=== PATIENT | female | born 1965 | race Native Hawaiian/Other Pacific Islander ===

== ENCOUNTER → 2018-09-22 13:25 | Outpatient (CLI) | payer OTHER, MEDICAID, SELFPAY ==
[2018-09-22 13:59] LABS: Add Manual Diff / Slide Review NO; Basophils Absolute Auto 0 /uL (0-100); Basophils Percent Auto 0.5 % (0-2); Eosinophils Absolute Auto 100 /uL (0-450); Eosinophils Percent Auto 1.1 % (2-4); Hematocrit 41.9 % (36-46); Lymphocytes Absolute Auto 2300 /uL (1100-4500); Lymphocytes Percent Auto 39.2 % (25-40); Mean Corpuscular HGB Conc 33.4 % (30-36); Mean Corpuscular Hemoglobin 29.8 PG (26-34); Mean Corpuscular Volume 89.3 fL (80-100); Monocytes Absolute Auto 300 /uL (0-900); Monocytes Percent Auto 5.3 % (3-14); Neutrophils Absolute Auto 3100 /uL (1500-7000); Neutrophils Percent Auto 53.9 % (50-75); Platelet Count 245 X10^3/uL (150-400); Red Blood Cell Count 4.69 X10^6/uL (4.0-5.2); Red Cell Distribution Width 13.7 % (11.6-14.8); White Blood Cell Count 5.8 X10^3/uL (4.5-11.0)
[2018-09-22 14:23] LABS: Alanine Aminotransferase 19 IU/L (9-52); Albumin 4.4 g/dL (3.5-5.0); Albumin Globulin Ratio 1.3 (1.0-2.8); Alkaline Phosphatase 88 U/L (38-126); Aspartate Aminotransferase 30 IU/L (14-36); Bilirubin Total 0.5 mg/dL (0.2-1.3); Blood Urea Nitrogen 16 mg/dL (7-17); C-Reactive Protein Quant 0.5 mg/dL (<1.0); Calcium 9.5 mg/dL (8.4-10.2); Carbon Dioxide 25 mmol/L (22-32); Chloride 104 mmol/L (98-107); Estimated Glomerular Filt Rate > 60.0 mL/min (>60); Globulin 3.4 g/dL (1.7-4.1); Glucose 87 mg/dL (70-100); HEMOLYSIS < 15 (0-50); Potassium 3.8 mmol/L (3.4-5.1); Sodium 141 mmol/L (137-145); Total Protein 7.8 g/dL (6.3-8.2)
[2018-09-22 14:29] LABS: Erythrocyte Sedimentation Rate 7 MM/HR (0-20)
[2018-09-25 18:52] LABS: ANA Screen, IFA Negative (Negative)
== END ==
PROVIDERS: PCP Family Medicine; Visit Provider Physical Medicine & Rehabilitation
DX: G89.29 Other chronic pain (principal); M47.27 Other spondylosis with radiculopathy, lumbosacral region; M54.5 Low back pain; R76.8 Other specified abnormal immunological findings in serum
CPT/HCPCS: 36415; 80053; 85025; 85651; 86038; 86140; 86666

== ENCOUNTER 2019-01-05 14:32 | Outpatient (CLI) | payer OTHER, MEDICAID, SELFPAY ==
[2019-01-05] VITALS (7 sets, daily range): BP systolic 101–130; BP diastolic 59–80; PULSE 91–101; RESP 16–20; TEMP 36.5; O2SAT 95–98
--- NOTE | 2019-01-05 14:34 | DI.RAD.S_ITS ---
PROCEDURE: PAIN L/SI FACET INJ/BLK 1STL INDICATIONS: LOW BACK PAIN FINDINGS: Fluoroscopic spot filming was performed to verify placement of spinal needles at the left L4-L5 and L5-S1 level(s), as labeled on the films. Appropriate location(s) of the needle tip(s) was confirmed by injection of iodinated contrast. IMPRESSION: Fluoroscopy for pain management. Dictated by: Teja Davis M.D. on 01/05/2019 at 17:08 Approved by: Teja Davis M.D. on 01/05/2019 at 17:08
[2019-01-05] MEDS: MIDAZOLAM 5 MG/5 ML VIAL IV (15:33)
[2019-01-05] MEDS: fentaNYL 100 MCG/2 ML INJ 50 MCG IV (15:33)
[2019-01-05] MEDS: IOPAMIDOL 15 ML VIAL 3 ML INJ (15:42)
[2019-01-05] MEDS: BETAMETHASONE 30 MG/5 ML MDV 6 MG INJ (15:42)
[2019-01-05] MEDS: BUPIVACAINE 0.25% (PF) VIAL 2 ML INJ (15:43)
--- NOTE | 2019-01-05 15:44 | PC.NURSE ---
ASSISTING PT OFF TABLE AND TRANSPORTING TO POST PROC AREA IN STABLE CONDITION.
--- NOTE | 2019-01-05 15:46 | P.PCN_ITS ---
Procedures Date/Time Date of procedure: 01/05/19 Time of procedure: 15:46 General Procedure description: PREOP DIAGNOSIS 1. FACET ARTHROPATHY, 2. AXIAL LBP, 3. MULTILEVEL DDD, POST OP DIAGNOSIS 1. FACET ARTHROPATHY, 2. AXIAL LBP, 3. MULTILEVEL DDD, PROCEDURES 1. FLUORSCOPICALLY GUIDED CONTRAST CONTROLLED FACET JOINT INJECTIONS LEFT L4/5, L5/S1 SURGEON: Shekhar Sandoval, DO INDICATIONS Basilia is referred by Dr. Alva for treatment of Axial LBP FINDINGS Multilevel Facet Arthropathy with Clinically significant axial LBP DESCRIPTION OF PROCEDURE Fluoroscopically guided, contrast-controlled left L4/5, L5/S1 facet joint injections. Following review of allergy and review of potential side effects and complications, including, but not necessarily limited to, infection, allergic reaction, local tissue breakdown, stroke, temporary or permanent nerve injury, paralysis, and possible , the patient indicated that the patient understood and agreed to proceed. An informed consent document was signed by the patient, witnessed by a nurse, and placed in the patient's chart. Additionally, other treatment options including medications, modalities, and physical therapy were reviewed with the patient. After review of previous anaesthesic history and IV conscious sedation the patient was deemed safe to proceed with todays procedure with IV conscious sedation as ASA class II designation. Safety time-out was performed to confirm patient ID, procedure to be performed and site of procedure. IV sedation was accomplished with a combination of 2mg of Versed and 50mcg of Fentanylwas administered by the RN after DO order, titrated to patient comfort during the course of the procedure while the patient remained responsive to all verbal commands. In the prone position, following sterile prep and drape of the lumbar region, the posterior aspect of the left L4/5, L5/S1 facet joints were identified fluoroscopically. The skin was anesthetized via a 25-gauge 1.5-inch needle with 1% lidocaine solution into the corresponding facet joints. At this point, a 22- gauge 3.5-inch spinal needle was atraumatically introduced and advanced under fluoroscopic guidance into the corresponding facet joints. Following negative aspiration, injections of approximately 0.2-cc of Isovue 200 confirmed interarticular placement without vascular uptake. Radiological data, including multiple fluoroscopic views of the lumbosacral spine, reveal a spinal needle at the left L4/5, L5/S1 facet joints. Subsequent views show flow of contrast material both superiorly and inferiorly within the joint space without vascular or intrathecal uptake. At this point, a total of 0.5 cc including a mixture of 0.25cc Marcaine and 0.25cc betamethasone was injected without complication into each of the corresponding facet joints. The procedure tolerated the procedure well without signs or symptoms of complications prior to transfer to the recovery area continued monitoring without incident. The patient was then transferred to the recovery area where they were observed for an appropriate period of time after the injection. The patient reported a VAS score of 7 prior to the procedure and a post-procedure VAS of 0. Total Fluoroscopy Time: 12.7 seconds Total Conscious Sedation Time: 24min POST OP INSTRUCTIONS The patient was provided a Pain Log to continue to record their response to the target-specific procedure prior to follow-up visit with their referring physician. Additionally, specific post-injection care instructions and a contact number to our office were provided if concerns arise regarding possible compl ications associated with the procedure are suspected. Shekhar Sandoval DO Complications: none
== END 2019-01-05 16:45 | disposition home or self-care (01) ==
LOC: RAD 14:33
PROVIDERS: PCP Family Medicine; Visit Provider Physical Medicine & Rehabilitation
DX: M47.816 Spondylosis without myelopathy or radiculopathy, lumbar region (principal); M47.817 Spondylosis without myelopathy or radiculopathy, lumbosacral region; M54.5 Low back pain; M51.36 Other intervertebral disc degeneration, lumbar region; M51.37 Other intervertebral disc degeneration, lumbosacral region
CPT/HCPCS: 64493; 64494; 99152; J0702; J1100; J2250; J3010

== ENCOUNTER 2019-04-09 10:26 | Outpatient (CLI) | payer OTHER, MEDICAID, SELFPAY ==
[2019-04-09] VITALS (9 sets, daily range): BP systolic 109–126; BP diastolic 59–78; PULSE 45–52; RESP 16–17; TEMP 36.2; O2SAT 99–100
--- NOTE | 2019-04-09 10:29 | DI.RAD.S_ITS ---
PROCEDURE: PAIN L/SI FACET INJ/BLK 1STL INDICATIONS: SPONDYLOSIS FINDINGS: Fluoroscopic spot filming was performed to verify placement of spinal needles at the L4, L5 and S1 level(s), as labeled on the films. Appropriate location(s) of the needle tip(s) was confirmed by injection of iodinated contrast. Dictated by: Max Gonzales M.D. on 04/09/2019 at 12:22 Approved by: Max Gonzales M.D. on 04/09/2019 at 12:25
[2019-04-09] MEDS: fentaNYL 100 MCG/2 ML INJ 50 MCG IV (11:13)
[2019-04-09] MEDS: MIDAZOLAM 5 MG/5 ML VIAL IV (11:13)
[2019-04-09] MEDS: IOPAMIDOL 15 ML VIAL 3 ML INJ (11:21)
[2019-04-09] MEDS: BUPIVACAINE 0.5% (PF) VIAL 2 ML INJ (11:21)
--- NOTE | 2019-04-09 11:23 | PC.NURSE ---
ASSISTING PT OFF TABLE AND TRANSPORTING TO POST PROC AREA IN STABLE CONDITION. PASSING RN CARE OF PT OFF TO ELIS Macdonald RN.
--- NOTE | 2019-04-09 11:25 | P.PCN_ITS ---
Procedures Date/Time Date of procedure: 04/09/19 Time of procedure: 11:25 General Procedure description: POST OP DIAGNOSIS 1. FACET ARTHROPATHY PROCEDURES 1. Left L4, L5 and S1 MB BLOCKS PHYSICIAN: Shekhar Sandoval DO INDICATIONS Basilia is referred by Dr. Alva for treatment of Left Axial LBP. DESCRIPTION OF PROCEDURE Fluoroscopically guided, contrast-controlled left L4, L5 and S1 medial branch blocks with 0.5cc of 0.5% Marcaine. Following review of allergy and review of potential side effects and complications, including, but not necessarily limited to, infection, allergic reaction, local tissue breakdown, nerve injury, paralysis, stroke and possible , the patient indicated that the patient understood and agreed to proceed. An informed consent document was signed by the patient, witnessed by a nurse, and placed in the patient's chart. After review of previous anaesthesic history and IV conscious sedation the patient was deemed safe to proceed with todays procedure with IV conscious sedation as ASA class II designation. Safety time-out was performed to confirm patient ID, procedure to be performed and site of procedure. IV sedation was accomplished with a combination of 4mg of Versed and 50mcg of Fentanyl was administered by the RN after DO order, titrated to patient comfort during the course of the procedure while the patient remained responsive to all verbal commands. In the prone position, following sterile prep and drape of the lumbar region, the left L4, L5 and S1 anatomical location of the medial branch of the dorsal ramus was identified fluoroscopically. Subsequently an anesthetic skin wheal using 1% lidocaine solution was initiated at each of the anatomical spots. Subsequently then a 25-gauge 3.5-inch spinal needle was atraumatically introduced and advanced under fluoroscopic guidance at each of the corresponding sites at the left L4, L5 and S1 MB. After negative aspiration, 0.2 cc of Isovue 200 was injected, confirming placement without vascular or intrathecal uptake. Subsequently then 0.5 cc of 0.5% Marcaine solution was injected at each of the corresponding sites at the left L4, L5 and S1 medial branch locations. The patient tolerated the procedure well without signs or symptoms of complications. The patient tolerated the procedure well without signs or symptoms of complications prior to transfer to the recovery area continued monitoring without incident. Post-procedure, the patient was monitored initiating provocative activities to measure the amount of relief from block of the facetogenic pain. The patient reported a VAS of 8 prior to the procedure and a post-procedure VAS of 1. It has been a pleasure to assist in the diagnostic and therapeutic care of your patient. Total Fluoroscopy Time: 9 seconds Total Conscious Sedation Time: 24min POST OP INSTRUCTIONS The patient was provided with a Pain Log to complete over the next several hours and subsequent days prior to the patient's follow up with the ordering physician. If the patient has chain link fence installer relief to the solution applied, then they may be a candidate for medial branch rhizotomy. The patient is aware, was provided, once again, with a Pain Log and will follow up with the referring physician for review and clinical correlation Shekhar Sandoval DO Complications: none
--- NOTE | 2019-04-09 12:08 | PC.NURSE ---
at 1129 return from procedure, pain 03/09, able to transfer self from w/c to chair, deferred snacks at this time
== END 2019-04-09 11:52 | disposition home or self-care (01) ==
LOC: RAD 10:28
PROVIDERS: PCP Family Medicine; Referring Provider Family Medicine; Visit Provider Physical Medicine & Rehabilitation
DX: M47.817 Spondylosis without myelopathy or radiculopathy, lumbosacral region (principal); M47.816 Spondylosis without myelopathy or radiculopathy, lumbar region; M54.5 Low back pain
CPT/HCPCS: 64493; 64494; 99152; J2250; J3010

== ENCOUNTER → 2019-09-03 14:58 | Outpatient (CLI) | payer OTHER, MEDICAID, SELFPAY ==
--- NOTE | 2019-09-03 15:01 | DI.RAD.S_ITS ---
PROCEDURE: XR LUMBAR SPINE MIN 4V INDICATIONS: low back pain TECHNIQUE: 5 views of the lumbar spine were acquired. COMPARISON: None. FINDINGS: Bones: 5 nonrib-bearing vertebrae are present. There is normal bony alignment. No vertebral body compression fractures. No suspicious bony lesions. There is minimal disc height reduction and mild facet osteoarthritis at L5-S1. Soft tissues: Overlying bowel gas pattern is normal. No suspicious soft tissue calcifications. Oblique images: No pars defects. IMPRESSION: L5-S1 minimal degenerative disc disease and mild facet osteoarthritis symmetric bilaterally. No trauma found. Dictated by: Syed Escalera M.D. on 09/03/2019 at 15:27 Approved by: Syed Escalera M.D. on 09/03/2019 at 15:28
== END ==
PROVIDERS: PCP Family Medicine; Referring Provider Physical Medicine & Rehabilitation; Visit Provider Physical Medicine & Rehabilitation
DX: M54.5 Low back pain (principal); M47.27 Other spondylosis with radiculopathy, lumbosacral region
CPT/HCPCS: 72110

== ENCOUNTER 2020-04-26 23:33 | Emergency (ER) | payer OTHER, MEDICAID, SELFPAY ==
[2020-04-26 23:48] VITALS: BP 117/80; PULSE 78; RESP 17; TEMP 36.3; O2SAT 98; BMI 21.4
[2020-04-26 23:59] LABS: Add Manual Diff / Slide Review NO; Basophils Absolute Auto 0 /uL (0-100); Basophils Percent Auto 0.2 % (0-2); Eosinophils Absolute Auto 0 /uL (0-450); Eosinophils Percent Auto 0.1 % (2-4); Hematocrit 42.2 % (36-46); Hemoglobin 14.3 g/dL (12.0-16.0); Lymphocytes Absolute Auto 900 /uL (1100-4500); Lymphocytes Percent Auto 8.3 % (25-40); Mean Corpuscular HGB Conc 33.8 % (30-36); Mean Corpuscular Hemoglobin 31.1 PG (26-34); Mean Corpuscular Volume 91.8 fL (80-100); Monocytes Absolute Auto 300 /uL (0-900); Monocytes Percent Auto 2.7 % (3-14); Neutrophils Absolute Auto 9200 /uL (1500-7000); Neutrophils Percent Auto 88.7 % (50-75); Platelet Count 256 X10^3/uL (150-400); Red Cell Distribution Width 13.4 % (11.6-14.8); White Blood Cell Count 10.4 X10^3/uL (4.5-11.0)
[2020-04-27 00:02] LABS: Prothrombin Time 11.3 SECONDS (10.1-12.7)
[2020-04-27 00:06] LABS: Alanine Aminotransferase 19 IU/L (<35); Albumin 4.1 g/dL (3.5-5.0); Albumin Globulin Ratio 1.3 (1.0-2.8); Alkaline Phosphatase 99 U/L (38-126); Aspartate Aminotransferase 45 IU/L (14-36); Bilirubin Total 0.4 mg/dL (0.2-1.3); Blood Urea Nitrogen 13 mg/dL (7-17); Calcium 9.3 mg/dL (8.4-10.2); Carbon Dioxide 25 mmol/L (22-32); Chloride 107 mmol/L (98-107); Estimated Glomerular Filt Rate > 60.0 mL/min (>60); Globulin 3.1 g/dL (1.7-4.1); Glucose 98 mg/dL (70-100); HEMOLYSIS < 15 (0-50); Lipase 91 U/L (23-300); Sodium 138 mmol/L (137-145); Total Protein 7.2 g/dL (6.3-8.2)
--- NOTE | 2020-04-27 00:08 | ED.ABDPAIN ---
HPI - Abdominal Pain General Chief Complaint: Abdominal Pain Stated Complaint: poss bowel obstruction nausea sent by [facility] Time Seen by Provider: 04/26/20 23:42 Source: patient Mode of arrival: Ambulatory History of Present Illness HPI narrative: Patient is a 55-year-old female history of endometriosis chronic back pain and anxiety presenting with abdominal pain and vomiting constipation. She states that she has been on fentanyl patches for over a year for her chronic abdominal pain. She says however over the last few months she has had intermittent vomiting and worsening abdominal pain. She says she has lost over 20 lb over the last several months, she is only able to eat solid because everything else makes her nauseous. She states her last real bowel movement was 10 days ago she had 1 small hard stool today. She has tried MiraLax and gwyo-evq-kxduzbg medications today she has a suppository. This evening she had intense left-sided abdominal pain which prompted her mother to call 911. She has been persistently vomiting today and unable to keep anything down and feels as though she is dehydrated. She denies any fever or chills. MD complaint: abdominal pain Pain Consistency: now resolved Severity: moderate Quality: stabbing Radiation: LLQ Migration to: no migration Related Data Home Medications Medication Instructions Recorded Confirmed clonazepam 0.5 mg tablet 0.5 - 1 mg PO BEDTIME tab 09/22/18 12/12/19 fentanyl duragesic alvogen/apotex 75 mcg TRANSDERMAL 09/22/18 12/12/19 Previous Rx's Medication Instructions Recorded diazepam 10 mg tablet 10 mg PO .COMPLEX PRN #10 tab 12/12/19 diazepam 10 mg tablet 10 mg PO .COMPLEX PRN #10 tab 12/12/19 ciprofloxacin HCl [Cipro] 500 mg PO BID #14 tab 04/27/20 fluconazole [Diflucan] 200 mg PO DAILY #1 tab 04/27/20 metronidazole [Flagyl] 500 mg PO Q8H #21 tab 04/27/20 ondansetron 4 mg PO Q8H PRN #10 tab 04/27/20 Allergies Allergy/AdvReac Type Severity Reaction Status Date / Time No Known Drug Allergies Allergy Verified 12/12/19 15:27 Review of Systems Review of Systems ROS Unobtainable: All systems reviewed & are unremarkable except as noted in HPI and below Constitutional Constitutional: Denies chills, Reports fatigue, Reports lethargy, Reports malaise and Reports poor appetite Eyes Eyes: Denies change in vision, Denies eye discharge, Denies irritation and Denies loss of vision ENT Ears, Nose, Mouth, and Throat: Denies change in voice, Denies vertigo, Denies dizziness, Denies neck pain and Denies sore throat Cardiovascular Cardiovascular: Denies chest pain, Denies irregular heart rhythm, Denies lightheadedness, Denies palpitations, Denies dyspnea, Denies dyspnea on exertion and Denies orthopnea Respiratory Respiratory: Denies cough, Denies dyspnea, Denies dyspnea on exertion and Denies wheezing Gastrointestinal Gastrointestinal: Reports as per HPI Musculoskeletal Musculoskeletal: Denies back pain and Denies neck pain Integumentary/Breasts Skin/Breast: Denies pruritus, Denies erythema, Denies rash and Denies wounds Neurologic Neurologic: Denies vertigo, Denies dizziness and Denies loss of vision Endocrine Endocrine: Reports fatigue and Denies palpitations Allergic/Immunologic Allergic/Immunologic: Denies wheezing Patient History Medical History (Updated 04/27/20 @ 01:47 by Eri Cordova DO) Facet arthropathy, lumbosacral Surgical History H/O breast augmentation History of breast biopsy Family History Father Rheumatoid arthritis Diabetes mellitus Mother Osteopenia Osteoarthritis Social History marital status: unmarried,single Smoking Status: Current some day smoker alcohol intake: current Smoking Status: Current some day smoker alcohol intake frequency: other Substance Use Type: does not use Exam Initial Vital Signs Initial Vital Signs: Vital Signs Temperature 97.3 F L 04/26/20 23:48 Pulse Rate 78 04/26/20 23:48 Respiratory Rate 17 04/26/20 23:48 Blood Pressure 117/80 04/26/20 23:48 Pulse Oximetry 98 04/26/20 23:48 GENERAL: Talkative well-appearing 55-year-old female and in no acute distress. HEENT: Head atraumatic,EOMI, pupils reactive, face symmetric, moist mucous membranes CARDIOVASCULAR: Regular rate and rhythm without murmurs, rubs or gallops. RESPIRATORY: Breath sounds equal bilaterally, no wheezes rales or rhonchi. ABDOMEN: Soft, minimal left lower quadrant pain. Normoactive bowel sounds all 4 quadrants. No guarding or rebound. EXTREMITIES: Normal range of motion, no clubbing or edema. Neurovascularly intact NEUROLOGICAL: Alert and oriented x4.Normal gait and speech. Cranial nerves II through XII grossly intact. SKIN: Warm, dry, no laceration, no petechiae, no rashes or lesions. Course Orders Ordered: ED Orders 04/26/20 23:48 Complete Blood Count AUTO DIFF Stat Comprehensive Metabolic Panel Stat Lipase Stat Partial Thromboplastin Time Stat Prothrombin Time INR Stat 04/27/20 00:09 CT abdomen pelvis w con Stat Discontinued Medications Ciprofloxacin (Ciprofloxacin 500 Mg Tablet) 500 mg PO NOW ONE Stop: 04/27/20 01:58 Last Admin: 04/27/20 02:24 Dose: 500 mg Documented by: MOO Sodium Chloride (Normal Saline 0.9%) 1,000 mls @ 1,000 mls/hr IV BOLUS ONE Stop: 04/27/20 01:08 Last Infusion: 04/27/20 01:37 Dose: 0 mls/hr Documented by: Admin: 04/27/20 00:19 Dose: 1,000 mls/hr Documented by: MOO Ketorolac Tromethamine (Ketorolac 60 Mg/2 Ml Vial) 30 mg IV NOW ONE Stop: 04/27/20 00:10 Last Admin: 04/27/20 00:19 Dose: 30 mg Documented by: MOO Metronidazole (Metronidazole 500 Mg Tablet) 500 mg PO NOW ONE Stop: 04/27/20 01:58 Last Admin: 04/27/20 02:24 Dose: 500 mg Documented by: MOO Vital Signs Vital signs: Vital Signs - 8 hr 04/26/20 23:48 04/27/20 00:44 04/27/20 01:00 Temperature 97.3 F L Pulse Rate 78 78 68 Respiratory Rate 17 Blood Pressure 117/80 121/60 Pulse Oximetry 98 99 97 04/27/20 01:30 Temperature Pulse Rate 60 Respiratory Rate Blood Pressure 111/65 Pulse Oximetry 97 MDM - Abdominal Pain Lab Data Attestation: I reviewed the patient's lab results. Result diagrams: 04/26/20 23:48 04/26/20 23:48 Labs: Lab Results 0204/26/20 04/26/20 Range/Units 23:48 23:48 23:48 WBC 10.4 (4.5-11.0) X10^3/uL RBC 4.60 (4.0-5.2) X10^6/uL Hgb 14.3 (12.0-16.0) g/dL Hct 42.2 (36-46) % MCV 91.8 (80-100) fL MCH 31.1 (26-34) PG MCHC 33.8 (30-36) % RDW 13.4 (11.6-14.8) % Plt Count 256 (150-400) X10^3/uL Neut % (Auto) 88.7 H (50-75) % Lymph % (Auto) 8.3 L (25-40) % [place] % (Auto) 2.7 L (3-14) % Eos % (Auto) 0.1 L (2-4) % Baso % (Auto) 0.2 (0-2) % Neut # (Auto) 9200 H (1887-9427) /uL Lymph # (Auto) 900 L (5192-6942) /uL [place] # (Auto) 300 (0-900) /uL Eos # (Auto) 0 (0-450) /uL Baso # (Auto) 0 (0-100) /uL PT 11.3 (10.1-12.7) SECONDS INR 1.0 (0.9-1.3) APTT 33 (26.4-36.2) SECONDS Sodium 138 (137-145) mmol/L Potassium 4.0 (3.4-5.1) mmol/L Chloride 107 (98-107) mmol/L Carbon Dioxide 25 (22-32) mmol/L BUN 13 (7-17) mg/dL Creatinine 0.65 (0.52-1.04) mg/dL Estimated GFR > 60.0 (>60) mL/min BUN/Creatinine Ratio 20.0 (6-22) Glucose 98 (70-100) mg/dL Calcium 9.3 (8.4-10.2) mg/dL Total Bilirubin 0.4 (0.2-1.3) mg/dL AST 45 H (14-36) IU/L ALT 19 (<35) IU/L Alkaline Phosphatase 99 (38-126) U/L Total Protein 7.2 (6.3-8.2) g/dL Albumin 4.1 (3.5-5.0) g/dL Globulin 3.1 (1.7-4.1) g/dL Albumin/Globulin Ratio 1.3 (1.0-2.8) Lipase 91 (23-300) U/L Imaging Data CT scan - abdomen/pelvis: Radiologist's Impression: Preliminary report: Probable acute small-bowel enteritis pattern MDM Narrative Medical decision making narrative: Patient has no leukocytosis she is afebrile. She has had ongoing pain off and on for a number of months but may be progressively getting worse. She certainly has had ongoing nausea and vomiting. It sounds as though she may have symptoms of IBS. A CT certainly does not show any signs of constipation or impaction. Recommend that she see a GI specialist. Her symptoms have been ongoing for a while and seemed to be more severe at this time will try antibiotics Cipro and Flagyl. Discharge Plan Departure Patient Disposition: Home Clinical Impression: Gastroenteritis Instructions: DI for Viral Gastroenteritis -- Adult Activity Restrictions/Additional Instructions: *You have been diagnosed with gastroenteritis *What to do: I do recommend that you see GI for possible irritable bowel syndrome *Continue to take medications as directed Cipro 500 mg twice a day for 7 days Flagyl 500 mg 3 times a day for 7 days Diflucan 200 mg once after you are finished with antibiotics Zofran 4 mg every 8 hours if needed for nausea or vomiting Senokot and Dulcolax daily in till you have a bowel movement-take as directed *Follow up with your primary care provider in 2-3 days *Return to ER if you should have increasing abdominal pain persistent vomiting, fever or any new, worsening or concerning symptoms Prescriptions: New ciprofloxacin HCl [Cipro] 500 mg tablet 500 mg PO BID Qty: 14 RF: 0 metronidazole [Flagyl] 500 mg tablet 500 mg PO Q8H Qty: 21 RF: 0 fluconazole [Diflucan] 200 mg tablet 200 mg PO DAILY Qty: 1 RF: 0 ondansetron 4 mg tablet,disintegrating 4 mg PO Q8H PRN (Reason: nausea and vomiting) Qty: 10 RF: 0 No Action diazepam [Valium] 10 mg tablet 10 mg PO .COMPLEX PRN (Reason: sedation) Qty: 10 RF: 0 diazepam [Valium] 10 mg tablet 10 mg PO .COMPLEX PRN (Reason: sedation) Qty: 10 RF: 0 clonazepam 0.5 mg tablet 0.5 - 1 mg PO BEDTIME RF: 0 fentanyl duragesic alvogen/apotex 75 mcg transdermal RF: 0 Referrals: Martell Alva MD [Primary Care Provider] -
--- NOTE | 2020-04-27 00:09 | DI.CT.S_ITS ---
PROCEDURE: CT ABDOMEN PELVIS W CON INDICATIONS: vomiting, ab pain TECHNIQUE: After the administration of intravenous contrast, 5 mm thick sections acquired from the diaphragm to the symphysis. 5 mm coronal and sagittal reformats were acquired. For radiation dose reduction, the following was used: automated exposure control, adjustment of mA and/or kV according to patient size. COMPARISON: [facility], CT, ABDOMEN/PELVIS WITH CONTRAST, 11/05/2016, 15:51. FINDINGS: Image quality: Excellent. ABDOMEN: Lung bases: Lung bases are clear. Heart size is normal. Solid organs: Liver is normal in size and enhancement. Gallbladder is within normal limits. Biliary system is non dilated. Pancreas enhances normally. Spleen is normal in size and enhancement. No adrenal nodules. Kidneys demonstrate normal size and enhancement, without hydronephrosis. Peritoneum and bowel: There is possible mild thickening of multiple small bowel loops. Bowel loops demonstrate otherwise normal wall thickness and caliber. There is moderate diffuse colonic stool. No free fluid or air. Normal appendix. Nodes and vessels: No retroperitoneal or mesenteric adenopathy by size criteria. Aorta and inferior vena cava are normal in size. Miscellaneous: No ventral hernias. PELVIS: Genitourinary: Urinary bladder is decompressed. Miscellaneous: No inguinal hernias or adenopathy. Bones: No suspicious bony lesions. No vertebral body compression fractures. IMPRESSION: 1. Possible small bowel thickening, which could indicate gastroenteritis. 2. Normal appendix. 3. Concordant with preliminary interpretation. Dictated by: Marian Rivas M.D. on 04/27/2020 at 8:08 Approved by: Marian Rivas M.D. on 04/27/2020 at 8:10
[2020-04-27 00:14] LABS: PTT Partial Thromboplastin Tim 33 SECONDS (26.4-36.2)
[2020-04-27] MEDS: SODIUM CHLORIDE 0.9% 1,000 ML 1000 ML IV (00:19)
[2020-04-27] MEDS: KETOROLAC 60 MG/2 ML VIAL 30 MG IV (00:19)
[2020-04-27 00:44] VITALS: PULSE 78; O2SAT 99
[2020-04-27 01:00] VITALS: BP 121/60; PULSE 68; O2SAT 97
[2020-04-27 01:30] VITALS: BP 111/65; PULSE 60; O2SAT 97
[2020-04-27] MEDS: metroNIDAZOLE 500 MG TABLET PO (02:24)
[2020-04-27] MEDS: CIPROFLOXACIN 500 MG TABLET PO (02:24)
== END 2020-04-27 02:24 | disposition home or self-care (01) ==
PROVIDERS: Emergency Provider Emergency Medicine; PCP Family Medicine
DX: K52.9 Noninfective gastroenteritis and colitis, unspecified (principal); K59.00 Constipation, unspecified
CPT/HCPCS: 36415; 74177; 80053; 83690; 85025; 85610; 85730; 96361; 96374; 99283; 99284; J1885; Q9967

== ENCOUNTER → 2020-05-19 12:33 | Outpatient (CLI) | payer OTHER, MEDICAID, SELFPAY ==
--- NOTE | 2020-05-19 12:34 | DI.MRI.S_ITS ---
PROCEDURE: MR LUMBAR SPINE WO CON INDICATIONS: Dorsalgia, unspecified TECHNIQUE: Noncontrast sagittal T1 spin echo and T2 fast echo, sagittal STIR, axial T1 and T2 fast spin echo through the lumbar spine. In cases with scoliosis, additional coronal T2 fast spin echo may be performed. COMPARISON: [facility], CR, XR LUMBAR SPINE MIN 4V, 09/03/2019, 14:55. Outside Film, MR, MR LUMBAR SPINE WITHOUT CONTRAST, 11/01/2018, 11:28. [facility], MR LUMBAR SPINE WO CON, 08/26/2015, 14:39. FINDINGS: Image quality: Excellent. Alignment and Curvature: There is trace L5-S1 anterolisthesis. Bone Marrow: Marrow is of normal overall signal. No acute vertebral body compression fractures. Spinal Cord: Conus medullaris terminates at the L1 -2 disc level. Visualized cord demonstrates normal signal and size. Paraspinous Soft Tissues: No paravertebral masses. T12-L1: Normal appearance. L1-L2: Normal appearance. L2-L3: Loss of disc signal. Mild, diffuse disc bulge. No central stenosis. No neural foraminal narrowing. No neural compression. Fissure noted in the left foraminal annulus. L3-L4: Loss of disc signal. Mild, diffuse disc bulge. Mild bilateral facet hypertrophy. Mild narrowing of the central canal. Mild left neural foraminal narrowing. Fissure noted in the left foraminal annulus. L4-L5: Loss of disc signal. Mild, diffuse disc bulge. Moderate bilateral facet hypertrophy. Mild narrowing of the central canal. Mild bilateral neural foraminal narrowing. No neural compression. Fissure noted in the left foraminal annulus. L5-S1: Loss of disc signal. Mild, diffuse disc bulge. Moderate bilateral facet hypertrophy. No central stenosis. Mild bilateral neural foraminal narrowing. No neural compression. 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 IMPRESSION: 1. Multilevel degenerative disc disease. 2. Multilevel facet arthropathy. 3. No severe central canal narrowing. 4. No severe neural foraminal narrowing. 5. No neural compression. 6. L2-L3, L3-L4 and L4-L5 disc annulus fissures. Dictated by: Sisi Sharma MD, PhD on 05/19/2020 at 14:13 Approved by: Sisi Sharma MD, PhD on 05/19/2020 at 15:03
== END ==
PROVIDERS: PCP Family Medicine; Referring Provider Family Medicine; Visit Provider Family Medicine
DX: M54.9 Dorsalgia, unspecified (principal); M99.53 Intervertebral disc stenosis of neural canal of lumbar region; M51.36 Other intervertebral disc degeneration, lumbar region; M51.37 Other intervertebral disc degeneration, lumbosacral region; M47.816 Spondylosis without myelopathy or radiculopathy, lumbar region; M47.817 Spondylosis without myelopathy or radiculopathy, lumbosacral region; M48.061 Spinal stenosis, lumbar region without neurogenic claudication; M48.07 Spinal stenosis, lumbosacral region
CPT/HCPCS: 72148

== ENCOUNTER → 2020-06-02 12:50 | Outpatient (CLI) | payer OTHER, MEDICAID, SELFPAY ==
[2020-06-02 13:21] LABS: Add Manual Diff / Slide Review NO; Basophils Absolute Auto 100 /uL (0-100); Basophils Percent Auto 1.1 % (0-2); Eosinophils Absolute Auto 100 /uL (0-450); Hematocrit 38.9 % (36-46); Hemoglobin 13.1 g/dL (12.0-16.0); Lymphocytes Absolute Auto 2800 /uL (1100-4500); Lymphocytes Percent Auto 51.1 % (25-40); Mean Corpuscular HGB Conc 33.6 % (30-36); Mean Corpuscular Hemoglobin 30.3 PG (26-34); Mean Corpuscular Volume 90.1 fL (80-100); Monocytes Absolute Auto 300 /uL (0-900); Monocytes Percent Auto 6.2 % (3-14); Neutrophils Absolute Auto 2200 /uL (1500-7000); Neutrophils Percent Auto 39.6 % (50-75); Platelet Count 185 X10^3/uL (150-400); Red Blood Cell Count 4.32 X10^6/uL (4.0-5.2); Red Cell Distribution Width 12.3 % (11.6-14.8); White Blood Cell Count 5.5 X10^3/uL (4.5-11.0)
[2020-06-02 13:43] LABS: HEMOLYSIS < 15 (0-50); Iron 163 ug/dL (37-170)
[2020-06-02 13:54] LABS: Percent Iron Saturation 59 % (15-50); Total Iron Binding Capacity 274 ug/dL (265-497); Transferrin 229 mg/dL (206-381)
[2020-06-02 14:01] LABS: Free T3, Triiodothyronine Free 3.97 pg/mL (2.77-5.27); Free T4, Direct Thyroxine 1.07 ng/dL (0.78-2.19)
[2020-06-02 14:15] LABS: Thyroid Stimulating Hormone 2.39 uIU/mL (0.47-4.68)
[2020-06-03 22:51] LABS: Dehydroepiandrosterone Sulfate 98.2 ug/dL (41.2-243.7)
[2020-06-05 07:56] LABS: Percent Free Testosterone 1.84 % (0.50-2.80); Testosterone Free 0.18 ng/dL (0.10-0.85); Testosterone Total 9.6 ng/dL (.)
[2020-06-12 20:12] LABS: Triiodothyronine T3 Reverse 14.2 ng/dL (9.2-24.1)
== END ==
PROVIDERS: PCP Family Medicine; Referring Provider Obstetrics & Gynecology; Visit Provider Obstetrics & Gynecology
DX: N95.1 Menopausal and female climacteric states (principal); R53.83 Other fatigue; L81.9 Disorder of pigmentation, unspecified
CPT/HCPCS: 36415; 82627; 83001; 83540; 83550; 84402; 84403; 84439; 84443; 84481; 84482; 85025

== ENCOUNTER → 2020-12-08 11:50 | Outpatient (CLI) | payer OTHER, MEDICAID, SELFPAY ==
[2020-12-08 19:43] LABS: COVID19 - ORCAS (NP or Nasal) Negative (Negative)
== END ==
PROVIDERS: PCP Family Medicine; Visit Provider Family Medicine
DX: Z20.822 Contact with and (suspected) exposure to COVID-19 (principal)
CPT/HCPCS: U0003

== ENCOUNTER → 2020-12-15 12:01 | Outpatient (CLI) | payer OTHER, MEDICAID, SELFPAY ==
[2020-12-15 21:25] LABS: COVID19 - ORCAS (NP or Nasal) Negative (Negative)
== END ==
PROVIDERS: PCP Family Medicine; Visit Provider Family Medicine
DX: Z20.822 Contact with and (suspected) exposure to COVID-19 (principal)
CPT/HCPCS: C9803; U0003

== ENCOUNTER → 2021-01-05 11:48 | Outpatient (CLI) | payer OTHER, MEDICAID, SELFPAY ==
[2021-01-05 20:58] LABS: COVID19 - ORCAS (NP or Nasal) Negative (Negative)
== END ==
PROVIDERS: PCP Family Medicine; Referring Provider Family Medicine; Visit Provider Family Medicine
DX: Z20.822 Contact with and (suspected) exposure to COVID-19 (principal)
CPT/HCPCS: C9803; U0003

== ENCOUNTER 2021-01-06 14:55 | Outpatient (CLI) | payer OTHER, MEDICAID, SELFPAY ==
[2021-01-06] VITALS (7 sets, daily range): BP systolic 104–124; BP diastolic 51–96; PULSE 75–92; RESP 12–22; TEMP 36.7; O2SAT 98–99
--- NOTE | 2021-01-06 14:56 | DI.RAD.S_ITS ---
PROCEDURE: PAIN L/SI FACET INJ/BLK 1STL INDICATIONS: SPONDYLOSIS COMPARISON: [facility], , PAIN L/SI FACET INJ/BLK 1STL, 04/09/2019, 11:14. FINDINGS: Fluoroscopic spot filming was performed to verify placement of spinal needles at the L3-L4, L4-L5, and L5-S1 left medial branch level(s), as labeled on the films. Appropriate location(s) of the needle tip(s) was confirmed by injection of iodinated contrast. IMPRESSION: Imaging utilized for multilevel left lumbar medial branch block. Dictated by: Jose Roberto Peñaloza M.D. on 01/06/2021 at 16:14 Approved by: Jose Roberto Peñaloza M.D. on 01/06/2021 at 16:15
[2021-01-06] MEDS: fentaNYL 100 MCG/2 ML INJ 50 MCG IV (15:22)
[2021-01-06] MEDS: MIDAZOLAM 5 MG/5 ML VIAL IV (15:22)
[2021-01-06] MEDS: BUPIVACAINE 0.5% (PF) VIAL 5 ML INJ (15:27)
[2021-01-06] MEDS: IOPAMIDOL 15 ML VIAL 3 ML INJ (15:27)
[2021-01-06] MEDS: LIDOCAINE 1% 20 ML 10 ML INJ (15:28)
--- NOTE | 2021-01-06 15:34 | PM.PROC.IR.1 ---
Date/Time/Diagnoses Date of procedure: 01/06/21 Time of procedure: 15:34 Pre-procedure diagnosis: 1. FACET ARTHROPATHY Post-procedure diagnosis: same Procedure Notes Procedure: 1. Left L4, L5 and S1 MB BLOCKS Indications: Basilia is referred by Dr. Clayton for treatment of Left Axial LBP. Physician: Shekhar Sandoval Total Fluoroscopy time (seconds): 8 Total sedation minutes: 8 Complications: none Procedure in detail & Post-procedure care: DESCRIPTION OF PROCEDURE Fluoroscopically guided, contrast-controlled left L4, L5 and S1 medial branch blocks with 0.5cc of 0.5% Marcaine. Following review of allergy and review of potential side effects and complications, including, but not necessarily limited to, infection, allergic reaction, local tissue breakdown, nerve injury, paralysis, stroke and possible , the patient indicated that the patient understood and agreed to proceed. An informed consent document was signed by the patient, witnessed by a nurse, and placed in the patient's chart. After review of previous anaesthesic history and IV conscious sedation the patient was deemed safe to proceed with today?s procedure with IV conscious sedation as ASA class II designation. Safety time-out was performed to confirm patient ID, procedure to be performed and site of procedure. IV sedation was accomplished with a combination of 3mg of Versed and 50mcg of Fentanyl was administered by the RN after DO order, titrated to patient comfort during the course of the procedure while the patient remained responsive to all verbal commands. In the prone position, following sterile prep and drape of the lumbar region, the left L4, L5 and S1 anatomical location of the medial branch of the dorsal ramus was identified fluoroscopically. Subsequently an anesthetic skin wheal using 1% lidocaine solution was initiated at each of the anatomical spots. Subsequently then a 22-gauge 3.5-inch spinal needle was atraumatically introduced and advanced under fluoroscopic guidance at each of the corresponding sites at the left L4, L5 and S1 MB. After negative aspiration, 0.2cc of Isovue 200 was injected, confirming placement without vascular or intrathecal uptake. Subsequently then 0.5cc of 0.5% Marcaine solution was injected at each of the corresponding sites at the left L4, L5 and S1 medial branch locations. The patient tolerated the procedure well without signs or symptoms of complications. The patient tolerated the procedure well without signs or symptoms of complications prior to transfer to the recovery area continued monitoring without incident. Post-procedure, the patient was monitored initiating provocative activities to measure the amount of relief from block of the facetogenic pain. The patient reported a VAS of 7 prior to the procedure and a post-procedure VAS of 1. It has been a pleasure to assist in the diagnostic and therapeutic care of your patient. POST OP INSTRUCTIONS The patient was provided with a Pain Log to complete over the next several hours and subsequent days prior to the patient's follow up with the ordering physician. If the patient has customer relations consultant relief to the solution applied, then they may be a candidate for medial branch rhizotomy. The patient is aware, was provided, once again, with a Pain Log and will follow up with the referring physician for review and clinical correlation.
== END 2021-01-06 16:02 | disposition home or self-care (01) ==
PROVIDERS: PCP Family Medicine; Referring Provider Physical Medicine & Rehabilitation; Visit Provider Physical Medicine & Rehabilitation
DX: M47.817 Spondylosis without myelopathy or radiculopathy, lumbosacral region (principal); M54.59 Other low back pain
CPT/HCPCS: 64493; J2250; J3010

== ENCOUNTER → 2021-10-15 13:09 | Outpatient (CLI) | payer OTHER, MEDICAID, SELFPAY ==
[2021-10-16 18:25] LABS: Hematocrit 40.7 % (36-46); Mean Corpuscular HGB Conc 34.4 % (30-36); Mean Corpuscular Hemoglobin 30.3 PG (26-34); Platelet Count 259 X10^3/uL (150-400); Red Blood Cell Count 4.62 X10^6/uL (4.0-5.2); Red Cell Distribution Width 12.9 % (11.6-14.8); White Blood Cell Count 5.4 X10^3/uL (4.5-11.0)
[2021-10-16 18:29] LABS: Cholesterol 189 mg/dL (140-199); HDL Cholesterol 42 mg/dL (40-60); LDL Cholesterol Calculated 126 mg/dL (<100); Triglycerides 105 mg/dL (35-150)
[2021-10-16 18:40] LABS: LDL Cholesterol Direct 104 mg/dL (<100)
[2021-10-16 19:06] LABS: TSH w/ Reflex to FT4 3.04 uIU/mL (0.47-4.68)
== END ==
PROVIDERS: PCP Family Medicine; Visit Provider Family Medicine
DX: Z00.00 Encounter for general adult medical examination without abnormal findings (principal); M79.7 Fibromyalgia; R53.82 Chronic fatigue, unspecified; Z13.220 Encounter for screening for lipoid disorders; Z13.6 Encounter for screening for cardiovascular disorders
CPT/HCPCS: 80061; 83721; 84443; 85027

== ENCOUNTER → 2021-11-24 15:12 | Outpatient (CLI) | payer OTHER, MEDICAID, SELFPAY | PROVIDERS: PCP Family Medicine; Visit Provider Family Medicine | DX: R30.0 Dysuria (principal) | CPT/HCPCS: 81002; 87086 ==

== ENCOUNTER → 2021-12-15 14:16 | Outpatient (CLI) | payer OTHER, MEDICAID, SELFPAY ==
--- NOTE | 2021-12-15 | DI.CT.S_ITS ---
PROCEDURE: CT CHEST WO CON INDICATIONS: Follow up on lung nodules TECHNIQUE: Noncontrast 2.0-2.5 mm thick sections acquired from the pulmonary apices to the posterior costophrenic angles. 7 mm thick axial MIP and 5 mm coronal and sagittal reformats were then acquired. A low radiation dose technique was utilized. COMPARISON: [facility], CT, CT ABDOMEN PELVIS W CON, 04/27/2020, 0:20. FINDINGS: Image quality: Diagnostic, given the low radiation dose technique. Lungs and pleura: No acute airspace opacities. No pulmonary nodules. No pleural effusion or pneumothorax. Mediastinum: Heart size is normal. No pericardial effusion. No mediastinal adenopathy by size criteria. Thoracic aorta and central pulmonary arteries are normal in size. Esophagus is normal in caliber. No hiatal hernia. Bones and chest wall: Bilateral breast implants appear grossly intact. No suspicious bony lesions. No vertebral body compression fractures. No axillary or supraclavicular adenopathy by size criteria. Thyroid gland is unremarkable. Abdomen: Visualized upper abdomen solid organs and bowel loops appear normal in the absence of contrast. IMPRESSION: 1. No pulmonary nodules or suspicious pulmonary lesions. Fleischner Society criteria for SOLID lung nodule followup. Nodule size (mm)Low-risk patientHigh-risk patient<6 (single or multiple)No routine followup.Optional CT at 12 months. 6-8 (single or multiple)CT at 6-12 months, then optional CT at 18-24 mo.CT at 6-12 months, then CT at 18-24 months. >8 (single)CT at 3 months, PET-CT, or biopsy. Same as for low-risk pts. >8 (multiple)CT at 3-6 months, then optional CT at 18-24 mo.CT at 3-6 months, then CT at 18-24 months. Fleischner Society criteria for SUB-SOLID lung nodule followup. Solitary pure ground-glass nodules<6 mm (ground glass or part solid)No followup needed. 6 mm or larger (ground glass)CT at 6-12 months to confirm persistence, then CT every 2 years until 5 years.6 mm or larger (part solid)CT at 3-6 months to confirm persistence, then annual CT until 5 years if unchanged and solid component remains <6 mm. Multiple sub-solid nodules<6 mmCT at 3-6 months, then CT consider at 2 & 4 years for high risk patients. [address] at 3-6 months. Subsequent management based on most suspicious lesions. Recommendations do not apply to lung cancer screening, patients with immunosuppression, or patients with known primary cancer. Dictated by: Anju Killian M.D. on 12/15/2021 at 15:47 Approved by: Anju Killian M.D. on 12/15/2021 at 15:51
--- NOTE | 2021-12-15 14:18 | DI.US.S_ITS ---
PROCEDURE: US PELVIC COMPLETE INDICATIONS: Post menopausal bleeding TECHNIQUE: Real-time scanning was performed of the pelvic organs, with image documentation. Additional endovaginal scanning was necessary due to incomplete visualization of the adnexal and endometrial structures by transabdominal scanning. COMPARISON: [facility], , PELVIC COMPLETE, 11/05/2016, 15:19. [facility], , PELVIC COMPLETE, 06/02/2020, 12:02. FINDINGS: Uterus: Uterus is anteverted and normal in size at 4.8 x 2.5 x 4.1 cm. The myometrium is heterogeneous. The endometrium measures 1.8 mm combined thickness. There are uterine fibroids. A 0.9 x 1.1 x 0.8 cm intramural fibroid is seen in the right anterior uterine wall. In addition, there is a 1.4 x 1.2 x 1.1 cm intramural fibroid in the left anterior uterine wall. Overall, the fibroids are minimally changed in size. Ovaries: The right ovary measures 1.7 x 0.5 x 0 point cm. The left ovary measures 1.7 x 0.6 x 0.7 cm,. The ovaries have a normal sonographic appearance. Less than 12 follicles can be seen in each ovary. No adnexal masses are seen. Other: No pathologic free abdominal or pelvic fluid. IMPRESSION: 1. A cause for postmenopausal bleeding is not identified on ultrasound. 2. Myomatous uterus with 2 intramural fibroids. 3. Grossly normal uterus. We strive to produce accurate, complete, and clear reports of imaging services. To assist us in improving patient care, this report was composed using standard report templates and voice recognition software. Therefore, it may contain abnormal punctuation, insertions and/or omissions. Occasional wrong-word or sound-alike substitutions may occur. Though we review the report and make efforts to correct it, we do recommend that the report be read carefully in proper context to recognize any text inaccuracies. Dictated by: Teja Davis M.D. on 12/15/2021 at 17:36 Approved by: Teja Davis M.D. on 12/16/2021 at 11:26
== END ==
PROVIDERS: PCP Family Medicine; Referring Provider Nurse Practitioner Adult Health; Visit Provider Student in an Organized Health Care Education/Training Program
DX: N95.0 Postmenopausal bleeding (principal); D25.1 Intramural leiomyoma of uterus; R91.8 Other nonspecific abnormal finding of lung field
CPT/HCPCS: 71250; 76830; 76856

== ENCOUNTER → 2021-12-17 13:49 | Outpatient (CLI) | payer OTHER, MEDICAID, SELFPAY | PROVIDERS: PCP Family Medicine; Visit Provider Physician Assistant Medical | DX: N30.00 Acute cystitis without hematuria (principal) | CPT/HCPCS: 81002; 87077; 87086; 87186 ==

== ENCOUNTER → 2022-05-06 14:37 | Outpatient (CLI) | payer OTHER, MEDICAID, SELFPAY | PROVIDERS: PCP Family Medicine; Visit Provider Family Medicine | DX: N39.0 Urinary tract infection, site not specified (principal) | CPT/HCPCS: 87086 ==

== ENCOUNTER → 2022-05-25 13:50 | Outpatient (CLI) | payer OTHER, MEDICAID, SELFPAY ==
[2022-05-25 19:33] LABS: Add Manual Diff / Slide Review NO; Basophils Absolute Auto 100 /uL (0-100); Basophils Percent Auto 0.9 % (0-2); Eosinophils Absolute Auto 100 /uL (0-450); Eosinophils Percent Auto 1.4 % (2-4); Hematocrit 40.6 % (36-46); Hemoglobin 13.8 g/dL (12.0-16.0); Lymphocytes Absolute Auto 2200 /uL (1100-4500); Lymphocytes Percent Auto 34.1 % (25-40); Mean Corpuscular Hemoglobin 29.9 PG (26-34); Monocytes Absolute Auto 400 /uL (0-900); Monocytes Percent Auto 6.5 % (3-14); Neutrophils Absolute Auto 3600 /uL (1500-7000); Neutrophils Percent Auto 57.1 % (50-75); Platelet Count 274 X10^3/uL (150-400); Red Blood Cell Count 4.62 X10^6/uL (4.0-5.2); Red Cell Distribution Width 13.7 % (11.6-14.8); White Blood Cell Count 6.4 X10^3/uL (4.5-11.0)
[2022-05-25 19:44] LABS: Alanine Aminotransferase 29 IU/L (<35); Albumin 4.3 g/dL (3.5-5.0); Albumin Globulin Ratio 1.3 (1.0-2.8); Alkaline Phosphatase 66 U/L (38-126); Aspartate Aminotransferase 38 IU/L (14-36); Bilirubin Total 0.5 mg/dL (0.2-1.3); Bilirubin Unconjugated 0.1 mg/dL (0.0-1.1); Globulin 3.4 g/dL (1.7-4.1); HEMOLYSIS < 15 (0-50); Total Protein 7.7 g/dL (6.3-8.2)
[2022-05-25 20:11] LABS: TSH w/ Reflex to FT4 1.29 uIU/mL (0.47-4.68)
[2022-06-02 13:02] LABS: Estrogen 292 pg/mL (40-244)
[2022-06-14 13:37] LABS: Testosterone Free 0.07
[2022-06-14 13:51] LABS: Testosterone Total 11.9 ng/dL (.)
== END ==
PROVIDERS: PCP Family Medicine; Visit Provider Family Medicine
DX: N39.0 Urinary tract infection, site not specified (principal); N80.9 Endometriosis, unspecified; N95.0 Postmenopausal bleeding; R53.83 Other fatigue; R79.89 Other specified abnormal findings of blood chemistry; Z78.0 Asymptomatic menopausal state; Z87.19 Personal history of other diseases of the digestive system
CPT/HCPCS: 80076; 82672; 84402; 84403; 84443; 85025

== ENCOUNTER → 2022-07-12 14:02 | Outpatient (CLI) | payer OTHER, MEDICAID, SELFPAY ==
[2022-07-12 20:25] LABS: Add Manual Diff / Slide Review NO; Basophils Absolute Auto 0 /uL (0-100); Basophils Percent Auto 0.7 % (0-2); Eosinophils Absolute Auto 100 /uL (0-450); Eosinophils Percent Auto 2.2 % (2-4); Hematocrit 39.8 % (36-46); Hemoglobin 13.3 g/dL (12.0-16.0); Lymphocytes Absolute Auto 2600 /uL (1100-4500); Lymphocytes Percent Auto 41.2 % (25-40); Mean Corpuscular HGB Conc 33.4 % (30-36); Mean Corpuscular Hemoglobin 29.7 PG (26-34); Monocytes Absolute Auto 400 /uL (0-900); Monocytes Percent Auto 5.8 % (3-14); Neutrophils Absolute Auto 3200 /uL (1500-7000); Neutrophils Percent Auto 50.1 % (50-75); Platelet Count 249 X10^3/uL (150-400); Red Blood Cell Count 4.47 X10^6/uL (4.0-5.2); Red Cell Distribution Width 13.3 % (11.6-14.8); White Blood Cell Count 6.4 X10^3/uL (4.5-11.0)
[2022-07-12 20:39] LABS: Alanine Aminotransferase 30 IU/L (<35); Albumin 4.1 g/dL (3.5-5.0); Albumin Globulin Ratio 1.4 (1.0-2.8); Alkaline Phosphatase 63 U/L (38-126); Amylase 61 U/L (30-110); Aspartate Aminotransferase 36 IU/L (14-36); BUN Creatinine Ratio 19.2 (6-22); Bilirubin Total 0.3 mg/dL (0.2-1.3); Blood Urea Nitrogen 14 mg/dL (7-17); Calcium 9.1 mg/dL (8.4-10.2); Carbon Dioxide 26 mmol/L (22-32); Chloride 106 mmol/L (98-107); Estimated Glomerular Filt Rate > 60 mL/min (>60); Globulin 2.9 g/dL (1.7-4.1); Glucose 97 mg/dL (70-100); HEMOLYSIS < 15 (0-50); Lipase 95 U/L (23-300); Potassium 3.8 mmol/L (3.4-5.1); Sodium 140 mmol/L (137-145)
[2022-07-12 20:53] LABS: Erythrocyte Sedimentation Rate 9 MM/HR (0-20)
[2022-07-12 21:07] LABS: Hepatitis B Surface Antigen NEGATIVE s/c (NEGATIVE)
[2022-07-12 21:24] LABS: Hep C Virus Ab w/Reflex Quant NEGATIVE s/c (NEGATIVE)
[2022-07-14 04:01] LABS: Ceruloplasmin 27.2 mg/dL (19.0-39.0)
== END ==
PROVIDERS: PCP Family Medicine; Visit Provider Family Medicine
DX: R10.9 Unspecified abdominal pain (principal); R79.89 Other specified abnormal findings of blood chemistry
CPT/HCPCS: 80053; 82150; 82390; 83690; 85025; 85651; 86803; 87340

== ENCOUNTER → 2022-11-22 12:06 | Outpatient (CLI) | payer OTHER, MEDICAID, SELFPAY ==
--- NOTE | 2022-11-22 12:30 | DI.US.S_ITS ---
PROCEDURE: US PELVIC COMPLETE INDICATIONS: PMB; PREMPRO TECHNIQUE: Real-time scanning was performed of the pelvic organs, with image documentation. Additional endovaginal scanning was necessary due to incomplete visualization of the adnexal and endometrial structures by transabdominal scanning. COMPARISON: [facility], , US PELVIC COMPLETE, 12/15/2021, 14:36. FINDINGS: Uterus: Uterus measures 6.3 x 3.3 x 5.2 cm. Endometrium measures 2-3 mm, with some fluid. There is focal endometrial thickening in the mid segment measuring 8 x 6 x 3 mm. Numerous polyps are present, mostly intramural, measuring up to 1.2 x 1.2 cm and 1.6 x 1.5 cm. Ovaries: Small ovaries, the left is not well seen. Other: No pathologic free fluid. IMPRESSION: Focal endometrial thickening in the mid segment measuring up to 8 x 6 x 3 mm, consider gynecologic evaluation and possible sampling in the setting of postmenopausal bleeding. Other parts of the endometrium are not thickened, measuring 2-3 mm. Dictated by: Ayo Wang M.D. on 11/22/2022 at 15:52 Approved by: Ayo Wang M.D. on 11/22/2022 at 15:54
== END ==
PROVIDERS: PCP Family Medicine; Referring Provider Nurse Practitioner Adult Health; Visit Provider Nurse Practitioner Adult Health
DX: N95.0 Postmenopausal bleeding (principal); D25.9 Leiomyoma of uterus, unspecified; R93.89 Abnormal findings on diagnostic imaging of other specified body structures
CPT/HCPCS: 76830; 76856

== ENCOUNTER → 2023-03-01 17:34 | Outpatient (CLI) | payer OTHER, MEDICAID, SELFPAY | PROVIDERS: PCP Family Medicine; Visit Provider Nurse Practitioner Family | DX: R68.83 Chills (without fever) (principal); R53.83 Other fatigue | CPT/HCPCS: 81002; 87086 ==

== ENCOUNTER 2023-03-15 10:20 | Emergency (ER) | payer OTHER, MEDICAID, SELFPAY ==
[2023-03-15] VITALS (10 sets, daily range): BP systolic 103–124; BP diastolic 56–81; PULSE 56–86; RESP 16–18; TEMP 37.2; O2SAT 94–99; BMI 27.7
[2023-03-15 11:21] LABS: Add Manual Diff / Slide Review NO; Basophils Absolute Auto 0 /uL (0-100); Basophils Percent Auto 0.6 % (0-2); Eosinophils Absolute Auto 100 /uL (0-450); Eosinophils Percent Auto 0.7 % (2-4); Hematocrit 41.4 % (36-46); Hemoglobin 13.9 g/dL (12.0-16.0); Lymphocytes Absolute Auto 1700 /uL (1100-4500); Lymphocytes Percent Auto 20.6 % (25-40); Mean Corpuscular HGB Conc 33.6 % (30-36); Mean Corpuscular Hemoglobin 29.4 PG (26-34); Mean Corpuscular Volume 87.5 fL (80-100); Monocytes Absolute Auto 700 /uL (0-900); Monocytes Percent Auto 8.2 % (3-14); Neutrophils Absolute Auto 5700 /uL (1500-7000); Neutrophils Percent Auto 69.9 % (50-75); Platelet Count 272 X10^3/uL (150-400); Red Blood Cell Count 4.73 X10^6/uL (4.0-5.2); Red Cell Distribution Width 12.9 % (11.6-14.8); White Blood Cell Count 8.1 X10^3/uL (4.5-11.0)
[2023-03-15 11:27] LABS: Alanine Aminotransferase 19 IU/L (<35); Albumin 4.2 g/dL (3.5-5.0); Albumin Globulin Ratio 1.2 (1.0-2.8); Alkaline Phosphatase 61 U/L (38-126); Aspartate Aminotransferase 31 IU/L (14-36); BUN Creatinine Ratio 15.3 (6-22); Bilirubin Total 0.6 mg/dL (0.2-1.3); Blood Urea Nitrogen 11 mg/dL (7-17); Calcium 9.3 mg/dL (8.4-10.2); Carbon Dioxide 26 mmol/L (22-32); Chloride 104 mmol/L (98-107); Estimated Glomerular Filt Rate > 60 mL/min (>60); Globulin 3.6 g/dL (1.7-4.1); Glucose 99 mg/dL (70-100); HEMOLYSIS < 15 (0-50); Lipase 103 U/L (23-300); Potassium 3.6 mmol/L (3.4-5.1); Sodium 136 mmol/L (137-145); Total Protein 7.8 g/dL (6.3-8.2)
[2023-03-15 14:01] LABS: Bacteria Urine None Seen; Culture Indicated Urine Cult Not Indicated; RBC Urine None Seen (0-5/HPF); Squamous Epithelial Cell Urine None Seen (0-5/HPF); WBC Urine None Seen (0-5/HPF)
--- NOTE | 2023-03-15 14:42 | ED_ITS ---
HPI - Abdominal Pain General Chief Complaint: Abdominal Pain Stated Complaint: SICK T-4/ N/V/D Time Seen by Provider: 03/15/23 14:25 Source: patient, RN notes reviewed and old records reviewed Mode of arrival: Ambulatory Limitations: no limitations History of Present Illness HPI narrative: 57-year-old female with reported history of chronic cyclic abdominal pain. Typically every 3-4 weeks patient has episodes. She states most recent episode started 4 days ago was actually improving currently. She has been afebrile, describes central abdominal pain probably arthralgias, nausea did have some vomiting and loose stools. Denies any diarrhea. Denies any black or bloody stools. States nausea and vomiting is resolved. No chest pain or shortness of breath. No urinary symptoms reported. No vaginal bleeding. Patient states she is seen her primary care is set up to have a CT abdomen pelvis in the following week. But wanted to get labs while she was having an active exacerbation. Patient states she has had upper and lower endoscopy in 2020 which was negative except for polyps, did have H pylori testing which was negative and states she was evaluated for Crohn's and told was negative. Patient had a tele visit with Gastroenterology recently told to take Metamucil. Patient does follow with Dr. Scruggs on [facility]. She is on OxyContin 20 mg b.i.d., estradiol patch and progesterone orally as well as ondansetron PRN. She notes that she tried Advil which seemed to worsen symptoms. Former smoker, no regular alcohol, no recreational drugs. Denies any other abdominal surgeries. Related Data Previous Rx's Medication Instructions Recorded omeprazole 20 mg capsule,delayed 20 mg PO BID #60 caps 12/14/22 release oxycodone 20 mg tablet,crush 20 mg PO BID #56 tabs 02/23/23 resistant,extended release 12 hr estradiol 0.05 mg/24 hr semiweekly 1 patch transdermal 2XW #8 ea 03/04/23 transdermal patch (Vivelle-Dot) progesterone micronized 100 mg 100 mg PO BEDTIME 30 days #30 caps 03/04/23 capsule (Prometrium) dicyclomine 10 mg capsule 10 mg PO QID PRN abdominal pain 03/15/23 #20 caps Allergies Allergy/AdvReac Type Severity Reaction Status Date / Time No Known Drug Allergies Allergy Verified 01/16/24 10:48 Review of Systems Review of Systems ROS Unobtainable: All systems reviewed & are unremarkable except as noted in HPI and below Patient History Medical History (Updated 03/15/23 @ 15:31 by Cherelle Stout DO) Abnormal uterine bleeding (AUB) Menopausal symptoms Post-menopausal bleeding Osteoarthritis (~2015) PTSD (post-traumatic stress disorder) Restless leg syndrome Migraines DDD (degenerative disc disease) Hepatitis (~1988) Chicken pox Anemia (~2000) Hearing loss (~2004) Painful menstrual periods (~1981) Ovarian cyst (~1989) Irregular menstrual cycle (~1981) Genital warts (~1987) Frequent UTI (~1985) Hypothyroidism (~2007) Sleep disorder Anxiety Panic disorder Peripheral neuropathy Chronic pain syndrome Fibromyalgia (~2017) Chronic fatigue IBS (irritable bowel syndrome) (~2008) Surgical History Anesthesia Surgical procedure planned Status post laparoscopy (~2015) History of breast biopsy (~1991) H/O breast augmentation (~2008) Family History Father Rheumatoid arthritis Diabetes mellitus History of heart disease Hypertension Mental health problem Mother Osteopenia Osteoarthritis Kidney pain Grandmother Cancer Grandfather Cancer Grandfather Diabetes mellitus History of heart disease Grandmother Diabetes mellitus Social History marital status: unmarried,single Smoking Status: Former smoker alcohol intake: current Smoking Status: Former smoker alcohol intake frequency: other Substance Use Type: does not use Exam Narrative Exam Narrative: GENERAL: Alert and oriented x three, female in mild distress. HEENT: Head normocephalic, atraumatic, EOMI, pupils reactive, face symmetric, moist mucous membranes NECK: Supple, full range of motion CARDIOVASCULAR: Regular rate and rhythm without murmurs, rubs or gallops. RESPIRATORY: Breath sounds equal bilaterally, no wheezes rales or rhonchi. ABDOMEN: Soft, nontender. Nondistended. Normoactive bowel sounds all 4 quadrants. No guarding or rebound, rigidity, no mass : No CVA tenderness EXTREMITIES: Normal range of motion, no clubbing or edema. Neurovascularly intact. No swelling or joint abnormalities appreciated. NEUROLOGICAL: Cranial nerves II through XII grossly intact. Moving all extremities. Normal gait. SKIN: Warm, dry, no petechiae, no rashes or lesions. Initial Vital Signs Initial Vital Signs: Vital Signs Pulse Rate 84 03/15/23 10:40 Pulse Oximetry 94 03/15/23 10:40 Course Orders Ordered: ED Orders 03/15/23 10:52 EKG-12 Lead Stat 03/15/23 10:57 Complete Blood Count AUTO DIFF Stat Comprehensive Metabolic Panel Stat Lipase Stat 03/15/23 13:20 Urine Microscopic Stat Discontinued Medications Ondansetron HCl (Ondansetron 4 Mg Odt) 4 mg PO NOW PRN PRN Reason: Nausea And Vomiting Ondansetron HCl (Ondansetron 4 Mg/2 Ml Inj) 4 mg IV NOW PRN PRN Reason: Nausea And Vomiting Vital Signs Vital signs: Vital Signs - 8 hr 03/15/23 10:40 03/15/23 10:42 03/15/23 10:42 Temperature Pulse Rate 84 82 Respiratory Rate Blood Pressure 120/74 Pulse Oximetry 94 98 Oxygen Delivery Method 03/15/23 10:44 03/15/23 13:29 03/15/23 13:29 Temperature 98.9 F Pulse Rate 77 62 Respiratory Rate 16 Blood Pressure 120/74 124/70 Pulse Oximetry 96 98 Oxygen Delivery Method Room Air 03/15/23 13:30 03/15/23 13:30 03/15/23 14:00 Temperature Pulse Rate 61 62 Respiratory Rate Blood Pressure 119/70 Pulse Oximetry 99 95 Oxygen Delivery Method Room Air 03/15/23 14:00 03/15/23 14:30 03/15/23 14:31 Temperature Pulse Rate 66 Respiratory Rate Blood Pressure 103/57 L 115/56 L Pulse Oximetry 96 Oxygen Delivery Method 03/15/23 14:31 03/15/23 15:00 03/15/23 15:00 Temperature Pulse Rate 61 56 L Respiratory Rate Blood Pressure 105/58 L Pulse Oximetry 95 95 Oxygen Delivery Method Room Air 03/15/23 15:43 Temperature Pulse Rate 86 Respiratory Rate 18 Blood Pressure 111/81 Pulse Oximetry 97 Oxygen Delivery Method Room Air MDM - Abdominal Pain Lab Data 03/15/23 10:57 03/15/23 10:57 Labs: Lab Results 03/15/23 03/15/23 Range/Units 10:57 13:20 WBC 8.1 (4.5-11.0) X10^3/uL RBC 4.73 (4.0-5.2) X10^6/uL Hgb 13.9 (12.0-16.0) g/dL Hct 41.4 (36-46) % MCV 87.5 (80-100) fL MCH 29.4 (26-34) PG MCHC 33.6 (30-36) % RDW 12.9 (11.6-14.8) % Plt Count 272 (150-400) X10^3/uL Neut % (Auto) 69.9 (50-75) % Lymph % (Auto) 20.6 L (25-40) % [place] % (Auto) 8.2 (3-14) % Eos % (Auto) 0.7 L (2-4) % Baso % (Auto) 0.6 (0-2) % Neut # (Auto) 5700 (9558-7716) /uL Lymph # (Auto) 1700 (8870-9005) /uL Montgomery # (Auto) 700 (0-900) /uL Eos # (Auto) 100 (0-450) /uL Baso # (Auto) 0 (0-100) /uL Sodium 136 L (137-145) mmol/L Potassium 3.6 (3.4-5.1) mmol/L Chloride 104 (98-107) mmol/L Carbon Dioxide 26 (22-32) mmol/L BUN 11 (7-17) mg/dL Creatinine 0.72 (0.52-1.04) mg/dL Estimated GFR > 60 (>60) mL/min BUN/Creatinine Ratio 15.3 (6-22) Glucose 99 (70-100) mg/dL Calcium 9.3 (8.4-10.2) mg/dL Total Bilirubin 0.6 (0.2-1.3) mg/dL AST 31 (14-36) IU/L ALT 19 (<35) IU/L Alkaline Phosphatase 61 (38-126) U/L Total Protein 7.8 (6.3-8.2) g/dL Albumin 4.2 (3.5-5.0) g/dL Globulin 3.6 (1.7-4.1) g/dL Albumin/Globulin Ratio 1.2 (1.0-2.8) Lipase 103 (23-300) U/L Urine RBC None seen (0-5/HPF) Urine WBC None seen (0-5/HPF) Ur Squamous Epith Cells None seen (0-5/HPF) Urine Bacteria None seen (None) Ur Culture Indicated? Cult not indicated Point of care testing: Point of Care Testing Test Results Negative Urine Dip Bedside Urine Glucose Negative Bedside Urine Bilirubin - Negative Bedside Urine Ketone - Negative Urine Specific [place] 1.015 Bedside Urine Occult Blood + Bedside Urine pH 6.0 Bedside Urine Protein - Negative Bedside Urine Urobilinogen - Negative Bedside Urine Nitrite - Negative Bedside Urine Leukocytes - Negative Esterase MDM Narrative Medical decision making narrative: 57-year-old female with complaint of cyclic abdominal discomfort sometimes nausea and vomiting and diarrhea but not always. She is on the upswing on this episode. Vitals are appropriate. Abdominal exam is benign. CBC, coags, CMP, urine and do not show clear source. Patient has outpatient CT abdomen pelvis ordered. She has seen Gastroenterology fairly recently had upper and lower endoscopy in 2020. Discussed it continue to follow-up. She is on quite a bit of narcotics for pain medication. She has been recommended to add Metamucil. Discussed she can add Tylenol to her narcotic pain medication. Can try dicyclomine as an alternative. Discussed return precautions. Patient has been improving while appropriate for discharge home. Discharge Plan Departure Patient Disposition: Home Clinical Impression: Abdominal pain Activity Restrictions/Additional Instructions: Follow up with your physician. Hope you continue to feel improved. Continue your home medications as prescribed. You can try doxylamine twice daily for spasm. Please return for new or worsening abdominal back or flank pain, lightheadedness or passing out, persistent vomiting, black or bloody stools or other new or concerning changes. Prescriptions: New dicyclomine 10 mg capsule 10 mg PO QID PRN (Reason: abdominal pain) Qty: 20 0RF No Action omeprazole 20 mg capsule,delayed release(DR/EC) 20 mg PO BID Qty: 60 0RF estradiol [Vivelle-Dot] 0.05 mg/24 hr patch semiweekly 1 patch transdermal 2XW Qty: 8 11RF Rx Instructions: apply 1 patch for 3 days alternating with 1 patch for 4 days each week for 3 wks per 4-wk cycle progesterone micronized [Prometrium] 100 mg capsule 100 mg PO BEDTIME 30 Days Qty: 30 11RF oxycodone 20 mg tablet,oral only,ext.rel.12 hr 20 mg PO BID Qty: 56 0RF Rx Instructions: Must last 28 days. Release date 02/25/23. triamcinolone acetonide [Kenalog] 40 mg/mL suspension 80 mg intra-articular ONCE Qty: 2 0RF Referrals: Shekhar Scruggs MD [Primary Care Provider] - Stand Alone Forms: Patient Portal/API
== END 2023-03-15 15:42 | disposition home or self-care (01) ==
PROVIDERS: Emergency Provider Emergency Medicine; PCP Family Medicine
DX: R10.9 Unspecified abdominal pain (principal); R11.2 Nausea with vomiting, unspecified
CPT/HCPCS: 36415; 80053; 81003; 81015; 81025; 83690; 85025; 99283

== ENCOUNTER → 2023-04-27 14:19 | Outpatient (CLI) | payer OTHER, MEDICAID, SELFPAY ==
[2023-04-27 19:15] LABS: C-Reactive Protein Quant 0.5 mg/dL (<1.0)
[2023-04-27 19:25] LABS: Erythrocyte Sedimentation Rate 15 MM/HR (0-20)
[2023-04-27 19:28] LABS: Follicle Stimulating Hormone 2.32 mIU/mL
[2023-04-29 23:12] LABS: Tissue Transglutaminase IgA <2 U/mL (0-3); Tissue Transglutaminase IgG 2 U/mL (0-5)
[2023-05-03 17:08] LABS: ANA Screen, IFA Negative (.)
[2023-05-04 22:22] LABS: Anti Mullerian Hormone <0.015 ng/mL (.)
[2023-05-12 08:06] LABS: Estradiol, Sensitive 22.8
== END ==
PROVIDERS: Nurse Practitioner Adult Health; PCP Family Medicine; Visit Provider Family Medicine
DX: R10.9 Unspecified abdominal pain (principal); M25.50 Pain in unspecified joint; M79.10 Myalgia, unspecified site; N95.0 Postmenopausal bleeding
CPT/HCPCS: 82397; 82670; 83001; 83516; 85651; 86038; 86140

== ENCOUNTER → 2023-05-25 14:38 | Outpatient (CLI) | payer OTHER, MEDICAID, SELFPAY | PROVIDERS: PCP Family Medicine; Visit Provider Physician Assistant Medical | DX: R35.0 Frequency of micturition (principal); R30.9 Painful micturition, unspecified | CPT/HCPCS: 80305; 81002; 82948; 87086 ==

== ENCOUNTER → 2023-05-30 13:10 | Outpatient (CLI) | payer OTHER, MEDICAID, SELFPAY | PROVIDERS: PCP Family Medicine; Visit Provider Physician Assistant Medical | DX: N39.0 Urinary tract infection, site not specified (principal) | CPT/HCPCS: 87086 ==

== ENCOUNTER → 2023-06-02 15:43 | Outpatient (CLI) | payer OTHER, MEDICAID, SELFPAY ==
[2023-06-02 20:55] LABS: Bacteria Urine None Seen; Culture Indicated Urine Cult Not Indicated; RBC Urine 0-1/HPF (0-5/HPF); Squamous Epithelial Cell Urine 0-1 /HPF (0-5/HPF); Urine Volume 10mL (spun); WBC Urine None Seen (0-5/HPF)
== END ==
PROVIDERS: PCP Family Medicine; Visit Provider Physician Assistant Medical
DX: R82.90 Unspecified abnormal findings in urine (principal)
CPT/HCPCS: 81015

== ENCOUNTER → 2023-07-12 15:28 | Outpatient (CLI) | payer OTHER, MEDICAID, SELFPAY ==
--- NOTE | 2023-07-12 15:32 | DI.MG.S_ITS ---
BILATERAL DIGITAL SCREENING MAMMOGRAM 3D/2D WITH CAD WITH AUGMENTATION: 07/12/2023 CLINICAL: Routine screening. Comparison mammograms: 07/31/2014, 09/06/2009. Both breasts are heterogeneously dense, which may obscure small masses (category c / 51-75% glandular tissue). Current study was also evaluated with a Computer Aided Detection (CAD) system. Bilateral breast implants are stable and intact. There is an oval asymmetry in the right breast middle depth lateral region seen on the craniocaudal view only. There also is a possible asymmetry in the right breast middle depth superior region seen on the mediolateral oblique view only. No other significant masses, calcifications, or other findings are seen in either breast. IMPRESSION: INCOMPLETE: NEEDS ADDITIONAL IMAGING EVALUATION The oval asymmetry in the right breast middle depth lateral region seen on the craniocaudal view only is indeterminate. The possible asymmetry in the right breast middle depth superior region seen on the mediolateral oblique view only is indeterminate. Additional views with possible ultrasound are recommended. Based on the Tyrer Cuzick model (a risk assessment model) the patient's lifetime risk is 13.5% and her 10 year risk is 4.4%. According to the ACR, ACS, and NCCN guidelines, an annual breast MRI exam along with mammogram is recommended if the patient's lifetime risk is 20% or greater. This exam was interpreted at Station ID: [id number]. NOTE: For mammograms, a report in lay terms will be sent to the patient. Approximately 15% of breast malignancies will not be visualized mammographically. In the management of a palpable breast mass, a negative mammogram must not discourage biopsy of a clinically suspicious lesion. Electronically Signed By: Nic Quiles M.D. [facility]/:07/18/2023 09:34:42 letter sent: Additional Imaging Needed ACR BI-RADS Category 0: Incomplete 3340F
--- NOTE | 2023-07-12 18:14 | DI.NM.S_ITS ---
DATE OF SERVICE: 07/12/2023 PROCEDURE: Exercise stress test. INDICATIONS: Fatigue, shortness of breath. CARDIAC STRESS: The patient underwent exercise stress test under the supervision of an attending staff. She walked on Zohaib protocol for 8 minutes 21 seconds, achieved maximum heart rate of 171, which was 104% of target heart rate. Resting blood pressure 122/84 and peak blood pressure 156/90. Baseline rhythm sinus. During stress, no convincing ischemic EKG changes seen. No significant arrhythmias. No chest pain or anginal symptoms. The patient has some fatigue and dyspnea. Achieved 10.1 METs of workload. CONCLUSION: Exercise stress test is negative for inducible ischemia. Fair exercise tolerance. Normal hemodynamic response. No ischemic EKG changes or significant arrhythmias. No chest discomfort; however, felt dyspnea and fatigue. As far as exercise stress test is concerned, low- risk exercise stress test. Basilia Tse - ERIC/jacoby/LEA doc#: [id number]/job#: [id number] dd: 07/12/2023 17:33:00 dt: 07/12/2023 17:44:00 DICTATING /COPIES TO: Nicola Roque MD COPIES MNE: MARIELLA;
== END ==
PROVIDERS: PCP Family Medicine; Referring Provider Family Medicine; Visit Provider Family Medicine
DX: Z12.31 Encounter for screening mammogram for malignant neoplasm of breast (principal); R92.333 Mammographic heterogeneous density, bilateral breasts; R06.02 Shortness of breath; R06.09 Other forms of dyspnea; Z98.82 Breast implant status
CPT/HCPCS: 77063; 77067; 93017

== ENCOUNTER → 2023-08-11 14:32 | Outpatient (CLI) | payer OTHER, MEDICAID, SELFPAY ==
[2023-08-11 18:07] LABS: Hematocrit 40.2 % (36-46); Hemoglobin 13.4 g/dL (12.0-16.0); Mean Corpuscular HGB Conc 33.2 % (30-36); Mean Corpuscular Hemoglobin 29.9 PG (26-34); Mean Corpuscular Volume 89.8 fL (80-100); Platelet Count 243 X10^3/uL (150-400); Red Blood Cell Count 4.47 X10^6/uL (4.0-5.2); Red Cell Distribution Width 13.1 % (11.6-14.8); White Blood Cell Count 6.7 X10^3/uL (4.5-11.0)
[2023-08-11 18:51] LABS: BUN Creatinine Ratio 16.9 (6-22); Blood Urea Nitrogen 14 mg/dL (7-17); Calcium 8.8 mg/dL (8.4-10.2); Carbon Dioxide 30 mmol/L (22-32); Chloride 105 mmol/L (98-107); Estimated Glomerular Filt Rate > 60 mL/min (>60); Glucose 88 mg/dL (70-100); HEMOLYSIS < 15 (0-50); Sodium 139 mmol/L (137-145)
[2023-08-16 09:10] LABS: Percent Free Testosterone 1.49 % (0.50-2.80); Testosterone Free 0.19 ng/dL (0.10-0.85); Testosterone Total 12.8 ng/dL (.)
== END ==
PROVIDERS: PCP Family Medicine; Referring Provider Specialist; Visit Provider Specialist
DX: Z01.818 Encounter for other preprocedural examination (principal); L65.9 Nonscarring hair loss, unspecified; R10.2 Pelvic and perineal pain
CPT/HCPCS: 36415; 80048; 84402; 84403; 85027

== ENCOUNTER → 2024-01-13 13:59 | Outpatient (CLI) | payer OTHER, MEDICAID, SELFPAY ==
--- NOTE | 2024-01-13 14:00 | DI.MRI.S_ITS ---
PROCEDURE: MR HEAD/BRAIN WO/W CON INDICATIONS: Expressive aphasia, vertigo TECHNIQUE: Noncontrast axial T1 spin echo, axial T2 fast spin echo, sagittal and axial FLAIR, coronal T2 fast spin echo, axial gradient echo, axial diffusion and ADC through the brain. After the administration of contrast, axial and coronal and sagittal 3D VIBE or T1 spin echo with fat saturation through the brain. COMPARISON: None. FINDINGS: Image quality: This examination is limited by involuntary motion artifact. CSF Spaces: Basal cisterns are patent. No extra-axial fluid collections. Ventricles are normal in size and shape. Brain: No midline shift. No intracranial bleeds or masses. No abnormal intracranial enhancement. The brainstem appears normal. Diffusion-weighted images demonstrate no acute infarct. No chronic ischemic insults. Normal intravascular flow voids are present. Skull and face: Calvarial marrow is normal in signal. Orbits appear normal. Sinuses: Moderate mucosal thickening can be seen involving the right maxillary sinus. Milder mucosal thickening can be seen elsewhere within the paranasal sinuses. There is moderate right mastoid air cell fluid present. IMPRESSION: No findings of acute or subacute infarction can be seen. No prior territorial infarct can be seen. No masses or abnormal enhancement can be seen. Additional findings: Focal right maxillary sinus disease Moderate right mastoid air cell fluid Dictated by: Alfred Newsome M.D. on 01/13/2024 at 15:14 Approved by: Alfred Newsome M.D. on 01/13/2024 at 15:15
== END ==
PROVIDERS: PCP Family Medicine; Referring Provider Family Medicine; Visit Provider Family Medicine
DX: J01.00 Acute maxillary sinusitis, unspecified (principal); R47.01 Aphasia; R42 Dizziness and giddiness
CPT/HCPCS: 70553; A9579

== ENCOUNTER → 2024-04-19 10:34 | Outpatient (CLI) | payer OTHER, SELFPAY ==
[2024-04-19 19:00] LABS: Add Manual Diff / Slide Review NO; Basophils Absolute Auto 100 /uL (0-100); Basophils Percent Auto 0.9 % (0-2); Eosinophils Absolute Auto 200 /uL (0-450); Eosinophils Percent Auto 2.8 % (2-4); Hematocrit 42.4 % (36-46); Lymphocytes Absolute Auto 2800 /uL (1100-4500); Lymphocytes Percent Auto 47.8 % (25-40); Mean Corpuscular HGB Conc 33.1 % (30-36); Mean Corpuscular Hemoglobin 29.5 PG (26-34); Mean Corpuscular Volume 89.1 fL (80-100); Monocytes Absolute Auto 400 /uL (0-900); Monocytes Percent Auto 7.2 % (3-14); Neutrophils Absolute Auto 2400 /uL (1500-7000); Neutrophils Percent Auto 41.3 % (50-75); Platelet Count 255 X10^3/uL (150-400); Red Blood Cell Count 4.76 X10^6/uL (4.0-5.2); Red Cell Distribution Width 13.1 % (11.6-14.8); White Blood Cell Count 5.8 X10^3/uL (4.5-11.0)
[2024-04-19 19:15] LABS: BUN Creatinine Ratio 27.6 (6-22); Blood Urea Nitrogen 24 mg/dL (7-17); C-Reactive Protein Quant < 0.5 mg/dL (<1.0); Calcium 9.5 mg/dL (8.4-10.2); Carbon Dioxide 29 mmol/L (22-32); Chloride 103 mmol/L (98-107); Cholesterol 160 mg/dL (140-199); Estimated Glomerular Filt Rate > 60 mL/min (>60); Glucose 88 mg/dL (70-100); HDL Cholesterol 46 mg/dL (40-60); HEMOLYSIS < 15 (0-50); LDL Cholesterol Calculated 95 mg/dL (<100); Potassium 4.4 mmol/L (3.4-5.1); Sodium 140 mmol/L (137-145); Triglycerides 94 mg/dL (35-150)
[2024-04-19 19:26] LABS: Erythrocyte Sedimentation Rate 12 MM/HR (0-20)
[2024-04-20 14:59] LABS: TSH w/ Reflex to FT4 2.74 uIU/mL (0.47-4.68)
== END ==
PROVIDERS: PCP Family Medicine; Visit Provider Family Medicine
DX: G89.18 Other acute postprocedural pain (principal); K59.00 Constipation, unspecified; Z84.2 Family history of other diseases of the genitourinary system; Z79.890 Hormone replacement therapy; Z68.27 Body mass index [BMI] 27.0-27.9, adult; R06.09 Other forms of dyspnea; R06.02 Shortness of breath
CPT/HCPCS: 80048; 80061; 84443; 85025; 85651; 86140